=== PATIENT | male | born 2000 | race Caucasian/White ===

== ENCOUNTER 2021-03-16 21:24 | Emergency (ER) | payer OTHER ==
[2021-03-16 21:36] VITALS: PULSE 106; TEMP 98.5; BMI 53.1
[2021-03-16] MEDS ORDERED: DIPHTH,PERTUSS(ACELL),TET 0.5 ML DISP.SYRIN IM ONE ×2 (21:57→23:27)
[2021-03-16] MEDS ORDERED: IBUPROFEN 600 MG TABLET (FP) PO ONE ×2 (23:13→23:26)
[2021-03-16 23:35] VITALS: BP 150/90
== END 2021-03-16 23:35 | disposition home or self-care (01) ==
LOC: JERFT 21:24 → JER 21:24 → JERFT 23:35
PROC: 0HQ1XZZ Repair Face Skin, External Approach (ICD-10-PCS; principal; 2021-03-16)
PROC: 3E0234Z Introduction of Serum, Toxoid and Vaccine into Muscle, Percutaneous Approach (ICD-10-PCS; 2021-03-16)
DX: S01.81XA Laceration without foreign body of other part of head, initial encounter (principal)
CPT/HCPCS: 90715; 99284-25

== ENCOUNTER 2021-03-23 12:51 | Emergency (ER) | payer OTHER ==
[2021-03-23 12:57] VITALS: BP 161/81; PULSE 96; TEMP 97.9; BMI 53.1
== END 2021-03-23 14:00 | disposition home or self-care (01) ==
LOC: JERFT 12:51
DX: Z48.02 Encounter for removal of sutures (principal)
CPT/HCPCS: 99281-25